=== PATIENT | female | born 1990 ===

== ENCOUNTER 2016-08-17 19:36 | Emergency (ER) | payer MEDICAID ==
[2016-08-17 19:37] VITALS: BMI 41.3
[2016-08-17 20:02] VITALS: BP 155/80; PULSE 99; RESP 18; TEMP 97.9; O2SAT 100
--- NOTE | 2016-08-17 20:56 | ED PDOC ---
HPI: Dental Pain/Injury Time Seen by Provider: 08/17/16 20:34 Chief Complaint (Nursing): Dental Pain Chief Complaint (Provider): Toothache History Per: Patient History/Exam Limitations: no limitations Additional Complaint(s): Vianney Gregory, a 26 year old female, presents to the ED for a toothache and ear pain. The patient states the toothache has been intermittent for 2-3 weeks whereas she has been having the earache for 2-3 days.The patient states that her dentist told her that she need to have a root canal done but her insurance doesn't approve it. She rates her pain as an 8/10 on the pain scale. Past Medical History Reviewed: Historical Data, Nursing Documentation, Vital Signs Vital Signs: Last Vital Signs Temp 97.9 F 08/17/16 20:00 Pulse 99 H 08/17/16 20:00 Resp 18 08/17/16 20:00 BP 155/80 H 08/17/16 20:00 Pulse Ox 100 08/17/16 20:00 - Medical History PMH: No Chronic Diseases Denies: Chronic Kidney Disease - Surgical History Surgical History: Cholecystectomy - Family History Family History: States: Unknown Family Hx - Living Arrangements Living Arrangements: With Family - Social History Current smoker - smoking cessation education provided: No Alcohol: None Drugs: Denies - Immunization History Hx Tetanus Toxoid Vaccination: No Hx Influenza Vaccination: No Hx Pneumococcal Vaccination: No - Home Medications Home Medications: Ambulatory Orders Medication Instructions Recorded Acetaminophen with Codeine 2 each PO QID #16 tablet 06/17/16 [Tylenol with Codeine #3 Tablet] Clindamycin [Cleocin] 300 mg PO QID #28 cap 06/17/16 Clindamycin [Cleocin] 300 mg PO QID #40 cap 08/17/16 - Allergies Allergies/Adverse Reactions: Allergies Allergy/AdvReac Type Severity Reaction Status Date / Time amoxicillin Allergy Verified 06/17/16 23:08 Review of Systems ROS Statement: Except As Marked, All Systems Reviewed And Found Negative ENT: Positive for: Other (Dental pain ) Physical Exam - Reviewed Nursing Documentation Reviewed: Yes Vital Signs Reviewed: Yes - Physical Exam Appears: Positive for: Well, Non-toxic, No Acute Distress Head Exam: Positive for: ATRAUMATIC, NORMAL INSPECTION, NORMOCEPHALIC Skin: Positive for: Normal Color, Warm, DRY Eye Exam: Positive for: Normal appearance ENT: Positive for: Other (Several fillings seen, no erythema of the gingiva, no abscess formation ). Negative for: Normal ENT Inspection Neck: Positive for: Normal, Painless ROM Cardiovascular/Chest: Positive for: Regular Rate, Rhythm Respiratory: Positive for: Normal Breath Sounds. Negative for: Accessory Muscle Use, Respiratory Distress Back: Positive for: Normal Inspection Extremity: Positive for: Normal ROM Neurologic/Psych: Positive for: Alert, Oriented - ECG O2 Sat by Pulse Oximetry: 100 Disposition - Clinical Impression Clinical Impression: Pain, dental - Patient ED Disposition Is Patient to be Admitted: No Counseled Patient/Family Regarding: Diagnosis, Need For Followup, Rx Given - Disposition Referrals: Alida Willard MD [Primary Care Provider] - Disposition: Routine/Home Disposition Time: 21:07 Condition: GOOD Prescriptions: Clindamycin [Cleocin] 300 mg PO QID #40 cap Instructions: Toothache (ED)
== END 2016-08-17 21:12 | disposition home or self-care (01) ==
LOC: H.ER 19:36
DX: K08.89 Other specified disorders of teeth and supporting structures (principal)